=== PATIENT | male | born 1990 | race Caucasian/White ===

== ENCOUNTER 2024-01-27 08:27 | Emergency (ER) | payer SELFPAY ==
[2024-01-27 08:35] VITALS: BP 124/76
[2024-01-27] MEDS: NSS 1000 IV (08:57)
--- NOTE | 2024-01-27 09:02 | ED.GENMED ---
History of Present Illness
General
Chief Complaint: Alcohol Problem
Time Seen by Provider: 01/27/24 08:39
Travel History
Have you had any contact with someone who has COVID-19?: No
Do you have any symptoms of coronavirus? Fever > 100 degrees, chills, cough, shortness of breath, sore throat, loss of taste or smell, muscle aches, or headache?: No
History of Present Illness
History of Present Illness:
33-year-old male with past medical history of anxiety, bipolar disorder/depression and substance abuse presenting the emergency department for evaluation after family brought him to the ER due to suspected intoxication. Patient was found by police
around 8 AM on somebody's lawn and patient refused emergency department evaluation. Upon getting home family brought him to the ER to be further evaluated. Family is concerned about the patient as they note he started a new job on second shift a
few weeks ago and apparently on Sunday evening may have taken up to 10 doses of Neurontin but patient was unable to confirm this. Patient gets methadone regularly at [facility] as part of his opiate addiction treatment. Remaining history was
difficult to obtain secondary to patient's current mental status.
Past History
Past History
ED Past Medical History: Psychiatric (Anxiety bipolar depression) and Other (on Methadone)
ED Past Surgical History: None
Patient has exhibited threatening behavior?: No
PSI?: No
Social History
Tobacco: Non-smoker
Alcohol: Binge drinker
Drug: Former user
Personal: Single
Living: with family
Employment: Employed
Review of Systems
Review of Systems
All Other Systems: ROS reviewed and negative except as documented in HPI and ROS
Phy Exam
Physical Exam
Physical Exam:
GENERAL: Sleepy but arousable to voice, in no apparent distress
Head: Normocephalic atraumatic
EYE: conjunctiva clear
NECK: Supple,
ENT: o/p clr, mmm.
CARDIAC: Regular rate and rhythm
LUNGS: Clear breath sounds bilaterally, no acute respiratory distress, no wheezes/rales/rhonchi
Abdomen: Soft, nontender, nondistended
NEUROLOGICAL: Sleepy but will answer some yes and no questions
SKIN: Warm and dry, skin intact.
MUSCULOSKELETAL: well perfused.
PSYCH: Normal and appropriate interaction.
Scores
Heart Failure Risk
Heart Failure Risk Score: Not Applicable
Heart Score for Chest Pain Patients
STEMI patient?: Not applicable
Withdrawal Assessment of Alcohol
Withdrawal Assessment Completed?: Not applicable
Course
Orders/Labs/Results
Orders:
Orders
01/27/24 08:47
Bedside Glucose- Treatment ONCE
0.9% Sodium Chloride 1000 ml [Nss] 1,000 ml IV BOLUS
01/27/24 08:48
Electrocardiogram (*1) Stat
Reason for Study: Other
Other Reason for Exam: overdose
EKG- Treatment ONCE
01/27/24 08:49
Ofloxacin [Ocuflox] See Dose Instructions OPHTH STAT STA
01/27/24 09:02
Acetaminophen Urgent
Alcohol Urgent
Complete Blood Count/With Diff Urgent
Comprehensive Metabolic Panel Urgent
[place] Urgent
PTT Urgent
Prothrombin Time Urgent
Salicylate Urgent
01/27/24 10:13
Fentanyl, Urine Urgent
Urinalysis Reflex To Culture Urgent
Date Specimen was Collected: 01/27/24
Time Specimen was Collected: 10:09
Urine Drug Abuse Screen Urgent
Date Specimen was Collected: 01/27/24
Time Specimen was Collected: 10:09
Abnormal Lab Results
01/27/24 01/27/24 01/27/24
09:02 09:21 10:13
RBC 4.24 L 10^6/uL
(4.70-6.10)
Hct 36.4 L %
(39.0-52.0)
MCH 31.1 H pg
(27.0-31.0)
Absolute Lymphs (auto) 0.8 L 10^3/uL
(1.2-3.4)
Neutrophils % 78.4 H %
(42.2-75.2)
Lymphocytes % 16.9 L %
(20.5-51.1)
Glucose 123 H mg/dl
(70-99)
Salicylates < 1.0 L mg/dl
(2.0-20.0)
Urine Methadone Screen Positive H
(Negative)
Acetaminophen < 10 L ug/ml
(10-30)
POC Glucose 166 H mg/dl
(70-99)
01/27/24 09:02
01/27/24 09:02
Vital Signs
Initial and Last Documented VS:
Initial Vital Signs
Pulse Resp BP Pulse Ox
82 11 124/76 94
01/27/24 08:35 01/27/24 08:35 01/27/24 08:35 01/27/24 08:35
Last Documented Vital Signs
Pulse Resp BP Pulse Ox
93 16 112/75 96
01/27/24 12:30 01/27/24 12:30 01/27/24 10:00 01/27/24 12:30
MDM/Problems Addressed
Differential Diagnosis Includes:
Alcohol intoxication, substance abuse, question overdose
MDM/Problems Addressed:
33-year-old male presenting emergency department for evaluation of reported public intoxication. Family concerned for patient's wellbeing. There is question as to if patient may have attempted overdose with Neurontin. I do not see this is a
listed medication on patient's medication list however there is significant antipsychotic medications noted. Will check a lithium level. Toxicology workup initiated. Reassessment following
Chronic conditions affecting care: Psychiatric illness
Acute Exacerbation and/or Progression of Chronic Illness: Psychiatric illness
*Pulse Oximetry
Patient hypoxic: no
*Trial Examiner Interpretation
Rate: normal
Rhythm: sinus
*Critical Care Note
Total Time (30-74mins, 75-104mins- exclusive of procedures): Not Applicable
Data Reviewed
Review of Other/Old Records Reveals: Labs and Records
Source: patient, records and family
Comment
Comment:
Patient's cousin with whom he is very close with brought patient to the emergency department. She states that he has been sober from opiates for 3 years, alcohol for 3 months. She believes that he may have met somebody at his new place of
employment who may have provided him with pills (she believes possibly benzodiazepines). She notes that Sunday and Sunday he seemed to be acting a little bit funny and confused at times which is very atypical for him. She notes that he did
mention to her yesterday about taking the Neurontin tablet but notes that this is not a prescription that he has so was not sure as to where he may have obtained this. Patient has done drug/alcohol rehab in the past.
Patient Management
Escalation/DeEscalation of care consider admission/obs:
Patient continues to rest without any concerns. He is awake and talking. He states that he does admit to some benzodiazepine use over the last few weeks despite this showing up negative on his urine drug screen. Patient is amenable to [facility]
consultation but does not want to go to any inpatient facility. He denies any suicidal ideation or homicidal ideation.
Patient was provided with information for outpatient management from [facility] Stable for discharge home and aware of return precautions. Patient's cousin will be taking the patient home with her.
ED Attending Note
-
Portions of this chart may have been created with voice recognition software.� Occasional wrong word or��sound alike� substitutions may have occurred due to the inherent limitations of voice recognition software.
Discharge Plan
Departure
Patient Disposition: Home (Routine Discharge)
Date of Disposition: 01/27/24
Time of Disposition: 12:38
Patient with high blood pressure during this ER visit?: No
Discharge Problem:
Alcohol abuse, Substance abuse
Instructions: Alcohol Use Disorder (DC)
Prescriptions:
No Action
quetiapine [Seroquel] 25 mg Tablet
25 mg PO HS
Rx Instructions:
07/18/2023, patient takes this medication with one 200 mg Seroquel tablet HS for a total of 225 mg.
lamotrigine 150 mg Tablet
150 mg PO BID
acetaminophen [Tylenol] 325 mg Tablet
800 mg PO Q6H PRN (Reason: mild pain)
ibuprofen 800 mg Tablet
800 mg PO Q8H PRN (Reason: mild pain)
quetiapine [Seroquel] 200 mg Tablet
200 mg PO HS
Rx Instructions:
07/18/2023, patient takes this medication with one 25 mg Seroquel tablet HS for a total of 225 mg.
lithium carbonate 300 mg Tablet Extended Release
300 mg PO BID
trazodone 100 mg Tablet
100 mg PO HS
omeprazole magnesium [Prilosec OTC] 20 mg Tablet,Delayed Release (Dr/Ec)
40 mg PO DAILY
methadone 10 mg/mL Concentrate
190 mg PO DAILY
Rx Instructions:
07/18/2023, confirmed dosing with [facility] in [place]

Address: [address] [place] [address] [place] [address]
Referrals:
NONE,* [Family Provider] -
Interventions
Interventions:
*Risk Screen - Suicide Last Done: 01/27/24 08:35
*General Assessment Last Done: 01/27/24 08:35
*Neglect/Abuse Screening Last Done: 01/27/24 08:35
ED- Fall Risk Assessment Last Done: 01/27/24 09:15
*ED COVID-19 Vaccine History Last Done: 01/27/24 08:35
ED- Neurological Assessment Last Done: 01/27/24 09:15
ED-Psychological Assessment Last Done: 01/27/24 09:15
Discharge Date and Time
Print Language: INDONESIAN
[2024-01-27 09:14] VITALS: BMI 26.8
[2024-01-27 09:22] LABS: Glucose - Point of Care 166 mg/dl (70-99)
[2024-01-27 09:27] LABS: % Basophils 0.8 % (0-2); % Eosinophils 0.4 % (0-6); % Immature Granulocytes 0.4 % (0-0.5); % Lymphocytes 16.9 % (20.5-51.1); % Monocytes 3.1 % (1.7-9.3); % Neutrophils 78.4 % (42.2-75.2); Absolute Lymphocytes 0.8 10^3/uL (1.2-3.4); Absolute Monocytes 0.2 10^3/uL (0.1-0.6); Absolute Neutrophils 3.8 10^3/uL (1.4-6.5); Hematocrit 36.4 % (39.0-52.0); Hemoglobin 13.2 g/dL (13.0-18.0); Mean Corp Hgb Conc. 36.3 g/dL (33.0-37.0); Mean Corpuscular Hgb 31.1 pg (27.0-31.0); Mean Corpuscular Volume 85.8 fL (80.0-94.0); Mean Platelet Volume 10.2 fL (7.4-10.4); Nucleated Red Blood Cells % 0 % (-); Platelet Count 160 10^3/uL (130-400); Red Blood Cell Count 4.24 10^6/uL (4.70-6.10); Red Cell Dist. Width 12.5 % (11.5-14.5); White Blood Cell Count 4.8 10^3/uL (4.8-10.8)
[2024-01-27 09:30] LABS: ALT (SGPT) 17 U/L (0-50); AST (SGOT) 34 U/L (17-59); Acetaminophen < 10 ug/ml (10-30); Albumin 4.5 g/dl (3.5-5.0); Alcohol 205 mg/dl; Alkaline Phosphatase 73 U/L (38-126); Blood Urea Nitrogen 9 mg/dl (9-20); Carbon Dioxide 25 mmol/L (22-30); Chloride 106 mmol/L (98-107); Estimated Creatinine Clearance > 125 ml/min; Glucose 123 mg/dl (70-99); Lithium 0.7 mmol/L (0.6-1.2); Potassium 3.5 mmol/L (3.5-5.1); Salicylate < 1.0 mg/dl (2.0-20.0); Sodium 143 mmol/L (135-145); Total Bilirubin 0.3 mg/dl (0.2-1.3); Total Protein 7.2 g/dl (6.3-8.2); eGFR > 60.00
[2024-01-27 09:31] LABS: INR 1.09; PT 13.9 Sec (11.4-14.6)
[2024-01-27 09:32] LABS: APTT 25.2 Sec (23.4-35.0)
[2024-01-27 10:00] VITALS: BP 112/75
[2024-01-27 10:27] LABS: Urine Albumin Negative (Neg - Trace); Urine Bilirubin Negative (Negative); Urine Character Clear (Clear); Urine Color Yellow; Urine Glucose Negative (Negative); Urine Ketone Negative (Negative); Urine Leukocyte Negative (Negative); Urine Nitrite Negative (Negative); Urine Occult Blood Negative (Negative); Urine Urobilinogen Negative (Neg - 1+)
[2024-01-27 11:10] LABS: Amphetamines Negative (Negative); Barbiturates Negative (Negative); Benzodiazepines Negative (Negative); Buprenorphine Negative (Negative); Cocaine Negative (Negative); Marijuana Negative (Negative); Methadone Positive (Negative); Methamphetamines Negative (Negative); Opiates Negative (Negative); Phencyclidine Negative (Negative); Tricyclic Antidepressants Negative (Negative)
[2024-01-27 11:26] LABS: Fentanyl, Urine Negative (Negative)
== END 2024-01-27 13:00 | disposition home or self-care (01) ==
LOC: EMR 08:27
PROVIDERS: Physician Assistant Medical; EMERGENCY PHYSICIAN Emergency Medicine
DX: F10.10 Alcohol abuse, uncomplicated (principal); F19.10 Other psychoactive substance abuse, uncomplicated; F41.9 Anxiety disorder, unspecified; F31.9 Bipolar disorder, unspecified
CPT/HCPCS: 99284; 96360; 80053; 80143; 80178; 80179; 80306; 80307; 81003; 82077; 82962; 85025; 85610; 85730; 93005

== ENCOUNTER 2024-11-01 14:56 | Emergency (ER) | payer SELFPAY ==
[2024-11-01] VITALS (7 sets, daily range): BP systolic 98–158; BP diastolic 63–101
--- NOTE | 2024-11-01 15:19 | ED.GENMED ---
History of Present Illness
General
Chief Complaint: Crisis Evaluation
Source: patient
Exam Limitations: none
Time Seen by Provider: 11/01/24 15:13
History of Present Illness
History of Present Illness:
See MDM
Past History
Past History
ED Past Medical History: Psychiatric (Anxiety bipolar depression) and Other (on Methadone)
ED Past Surgical History: None
Patient has exhibited threatening behavior?: No
PSI?: No
Social History
Tobacco: Smoker
Alcohol: Binge drinker
Drug: Former user
Personal: Single
Living: with family
Employment: Employed
Phy Exam
Physical Exam
Physical Exam:
See MDM
Course
Orders/Labs/Results
Orders:
Orders
11/01/24 Dinner
Regular
At Your Request: Non-Participating
Does patient need a safe tray?: Yes
11/01/24 15:18
1:1 Observation - Suicide/ Violent Behavior As Directed
Haloperidol Lactate [Haldol] 5 mg IM NOW STA
Lorazepam [Ativan] 2 mg .ROUTE .STK-MED ONE
Lorazepam [Ativan] 2 mg IM NOW STA
Restraints - Violent As Directed
Restraint Type-: Locked-4 point/4 rails
Apply From (date): 11/01/24
Apply from (time): 15:18
Remove (date): 11/01/24
Remove (time): 19:18
11/01/24 15:19
Haloperidol Lactate [Haldol] 5 mg .ROUTE .STK-MED ONE
11/01/24 15:22
Crisis Consult Urgent
Reason for Consult: Suicidal
11/01/24 15:50
Complete Blood Count/With Diff Urgent
Fentanyl, Urine Urgent
Urine Drug Abuse Screen Urgent
Date Specimen was Collected: 11/01/24
Time Specimen was Collected: 15:29
11/01/24 15:51
Alcohol Urgent
Comprehensive Metabolic Panel Urgent
11/01/24 21:30
Lorazepam [Ativan] 1 mg PO NOW STA
11/01/24 21:46
Methadone [Dolophine] 30 mg PO NOW STA
Abnormal Lab Results
11/01/24 11/01/24
15:50 15:51
WBC 3.8 L 10^3/uL
(4.8-10.8)
RBC 4.61 L 10^6/uL
(4.70-6.10)
MCH 31.7 H pg
(27.0-31.0)
Potassium 3.2 L mmol/L
(3.5-5.1)
Chloride 108 H mmol/L
(98-107)
BUN 5 L mg/dl
(9-20)
Glucose 109 H mg/dl
(70-99)
Urine Methadone Screen Positive H
(Negative)
Ur Tricyclics Screen Positive H
(Negative)
U Marijuana (THC) Screen Positive H
(Negative)
11/01/24 15:50
11/01/24 15:51
Vital Signs
Initial and Last Documented VS:
Initial Vital Signs
Temp Pulse Resp BP Pulse Ox
98 F 91 16 158/101 95
11/01/24 15:03 11/01/24 15:03 11/01/24 15:03 11/01/24 15:03 11/01/24 15:03
Last Documented Vital Signs
Temp Pulse Resp BP Pulse Ox
98 F 94 20 108/77 97
11/01/24 15:03 11/01/24 21:37 11/01/24 21:37 11/01/24 21:37 11/01/24 21:37
MDM/Problems Addressed
Differential Diagnosis Includes:
HPI and MDM Narrative:
34-year-old male presenting for evaluation of alcohol abuse and suicidal thoughts. Patient states he was dropped off by his cousin. Patient is belligerent and admits to drinking alcohol today. Throughout our discussion, patient becoming extremely
agitated and irritable. He states he started drinking alcohol again 1 month ago. Prior to that, he was 8 months sober. Patient is intermittently tearful and states he has thoughts of killing himself. Patient states he has a plan to jump in front
of a large truck on the highway. During one of his agitated states, patient threw his arms up in the air and started yelling. This exposed a plastic bottle of vodka in his pants. I explained to the patient that we have to compensate the alcohol.
Patient shut the door and tried to chug the vodka bottle. Fortunately, crisis was able to remove the bottle immediately. Patient now becoming even more agitated and verbally threatening myself, nursing staff and security. Patient becoming
combative. For the safety of staff and for the patient himself, patient placed in 4 point restraints and given IM Haldol and Ativan.
Physical exam
General: Belligerent, appears intoxicated. Physically aggressive gestures
HEENT: protecting airway
Neck: supple
CV: No evidence of cyanosis
Resp: No accessory muscle use
Abd: Non-distended
Extremities: No deformities
Neuro: alert
Psych: Agitated
Skin: Intact
Problems Addressed including Acute and Chronic Conditions affecting care:
1. Suicidal thoughts
Acuity: acute
Prognosis: unstable
Details: Potentially in the setting of alcohol abuse. Will have crisis evaluate. Due to his threatening behavior, patient requiring restraints
2. Alcohol use disorder
Acuity: acute
Prognosis: unstable
Details: Will obtain alcohol level and continue to reassess for withdrawal symptoms
3. [ ]
Acuity: acute
Prognosis: stable
Details:
4. [ ]
Acuity: acute
Prognosis: stable
Details:
5. [ ]
Acuity:
Prognosis:
Details:
Updates
Crisis is working on bed search. He was denying to [facility] funding due to his substance abuse history. [facility] will evaluate for placement based on alcohol abuse. Patient is requesting his methadone dose of 58 mg. I am unable to confirm this dose
based on the time of day. Pharmacy suggesting giving a lower dose and they will be able to verify it in the morning. Will give 30 mg methadone to avoid significant opiate withdrawal
Differential Diagnosis (but not limited to): Alcohol abuse disorder, depression, suicidal ideations
Testing considered: Folate and thiamine testing
Drug therapy (if applicable): OTC meds, please see d/c instruction regarding Rx drugs
Amount and/or Complexity of Data Reviewed
Clinical info obtained from: Patient
External data reviewed: N/A
Labs I independently reviewed (but not limited to): UDS
Radiology: N/A
Pulse Ox: not hypoxic
EKG independently reviewed: N/A
Tray Room Worker: N/A
Critical Care: N/A
Risk of Complication:
Social Determinants of health: Good social support
Discussed with other providers: Crisis
Escalation of Care includes Admit/Obs: After being observed in the Emergency Department, pt stable for discharge.
Occasional wrong word or 'sound a like' substitutions may have occurred due to the inherent limitations of voice recognition software. Read the chart carefully and recognize, using context, where substitutions have occurred.
*Critical Care Note
Total Time (30-74mins, 75-104mins- exclusive of procedures): Not Applicable
ED Attending Note
-
Portions of this chart may have been created with voice recognition software.� Occasional wrong word or��sound alike� substitutions may have occurred due to the inherent limitations of voice recognition software.
Discharge Plan
Departure
Patient Disposition: Other
Date of Disposition: 11/01/24
Time of Disposition: 21:49
Discharge Problem:
Alcohol use disorder, Depression
Prescriptions:
No Action
quetiapine [Seroquel] 25 mg Tablet
25 mg PO HS
Rx Instructions:
07/18/2023, patient takes this medication with one 200 mg Seroquel tablet HS for a total of 225 mg.
lamotrigine 150 mg Tablet
150 mg PO BID
acetaminophen [Tylenol] 325 mg Tablet
800 mg PO Q6H PRN (Reason: mild pain)
ibuprofen 800 mg Tablet
800 mg PO Q8H PRN (Reason: mild pain)
quetiapine [Seroquel] 200 mg Tablet
200 mg PO HS
Rx Instructions:
07/18/2023, patient takes this medication with one 25 mg Seroquel tablet HS for a total of 225 mg.
lithium carbonate 300 mg Tablet Extended Release
300 mg PO BID
trazodone 100 mg Tablet
100 mg PO HS
omeprazole magnesium [Prilosec OTC] 20 mg Tablet,Delayed Release (Dr/Ec)
40 mg PO DAILY
methadone 10 mg/mL Concentrate
190 mg PO DAILY
Rx Instructions:
07/18/2023, confirmed dosing with [facility] in [place]

Address: [address] [place] [address] [place] [address]
Referrals:
UNKNOWN - PT DOES,NOT KNOW [Family Provider] -
Interventions
Interventions:
*Risk Screen - Suicide Last Done: 11/01/24 15:01
*General Assessment Last Done: 11/01/24 15:20
*Neglect/Abuse Screening Last Done: 11/01/24 15:05
*ED COVID-19 Vaccine History Last Done: 11/01/24 15:20
ED-Psychological Assessment Last Done: 11/01/24 15:35
Discharge Date and Time
Print Language: CZECH
--- NOTE | 2024-11-01 15:20 | EDRN ---
While ER DR FERNANDEZ was talking with this pt, the pt is heard screaming at the doctor, screaming profanities at the ER DR FERNANDEZ, then the pulled had a bottle of alcohol that he started drinking from. ER independent contractor attempted to take the bottle
of alcohol away and the pt lunged at ER senior security engineer and tried to forcefully take the bottle of alcohol back from the senior security engineer. additional ER security guards and ER staff were called for assistance.
[2024-11-01] MEDS: ATIVAN 2 MG IM (15:25)
[2024-11-01] MEDS: HALDOL 5 MG IM (15:25)
--- NOTE | 2024-11-01 15:40 | EDRN ---
due to this pt taking off all his clothing, slamming urine cup on table, breaking urine cup, spilling urine all over table and floor, and continuing to scream and verbally threaten ER STAFF.... per ER DR FERNANDEZ verbal order, the pt was placed in
hard locked 4 point restraints at this time
--- NOTE | 2024-11-01 15:50 | EDRN ---
this PUBLICIST obtained ordered bloodwork via straight stick at this time. the pt tolerated this procedure well. 1:1 observation is maintained by [facility] technician
[2024-11-01 15:58] LABS: % Eosinophils 2.9 % (0-6); % Immature Granulocytes 0.5 % (0-0.5); % Lymphocytes 44.1 % (20.5-51.1); % Monocytes 7.6 % (1.7-9.3); % Neutrophils 43.9 % (42.2-75.2); Absolute Eosinophils 0.1 10^3/uL (0-0.7); Absolute Lymphocytes 1.7 10^3/uL (1.2-3.4); Absolute Monocytes 0.3 10^3/uL (0.1-0.6); Absolute Neutrophils 1.7 10^3/uL (1.4-6.5); Hematocrit 41.4 % (39.0-52.0); Hemoglobin 14.6 g/dL (13.0-18.0); Mean Corp Hgb Conc. 35.3 g/dL (33.0-37.0); Mean Corpuscular Hgb 31.7 pg (27.0-31.0); Mean Corpuscular Volume 89.8 fL (80.0-94.0); Mean Platelet Volume 9.6 fL (7.4-10.4); Nucleated Red Blood Cells % 0 % (-); Platelet Count 158 10^3/uL (130-400); Red Blood Cell Count 4.61 10^6/uL (4.70-6.10); Red Cell Dist. Width 13.8 % (11.5-14.5); White Blood Cell Count 3.8 10^3/uL (4.8-10.8)
[2024-11-01 16:10] LABS: Amphetamines Negative (Negative); Barbiturates Negative (Negative); Benzodiazepines Negative (Negative); Buprenorphine Negative (Negative); Cocaine Negative (Negative); Methadone Positive (Negative); Methamphetamines Negative (Negative)
[2024-11-01 16:11] LABS: Marijuana Positive (Negative); Opiates Negative (Negative); Phencyclidine Negative (Negative); Tricyclic Antidepressants Positive (Negative)
[2024-11-01 16:13] LABS: ALT (SGPT) 13 U/L (0-50); AST (SGOT) 31 U/L (17-59); Albumin 4.4 g/dl (3.5-5.0); Alkaline Phosphatase 99 U/L (38-126); Blood Urea Nitrogen 5 mg/dl (9-20); Calcium 8.6 mg/dl (8.4-10.2); Carbon Dioxide 25 mmol/L (22-30); Chloride 108 mmol/L (98-107); Glucose 109 mg/dl (70-99); Potassium 3.2 mmol/L (3.5-5.1); Sodium 145 mmol/L (135-145); Total Bilirubin 0.4 mg/dl (0.2-1.3); Total Protein 7.3 g/dl (6.3-8.2); eGFR > 60.00
[2024-11-01 16:20] LABS: Alcohol 334 mg/dl
[2024-11-01 16:25] LABS: Fentanyl, Urine Negative (Negative)
--- NOTE | 2024-11-01 18:08 | EDRN ---
the pt is resting comfortably in bed. Per ER Dr Sarabia verbal order, this HORSEBACK RIDING INSTRUCTOR REMOVED the hard locked restraint on this pts left ankle at this time due to the pt being calm and cooperative with staff. 1:1 observation is maintained by [facility] glass technician
--- NOTE | 2024-11-01 18:29 | EDRN ---
the pt is resting comfortably in bed. Per ER Dr Sarabia verbal order, this SILVERING APPLICATOR REMOVED the hard locked restraint on this pts right wrist at this time due to the pt being calm and cooperative with staff. the pt still has his left wrist and right
ankle hard locked restrain is still in place at this time. this SILVERING APPLICATOR will continue to monitor this pt. 1:1 observation is maintained by [facility] technician.
--- NOTE | 2024-11-01 19:00 | EDRN ---
the pt remains cooperative and calm with ER staff. the pt is currently resting quietly in bed. 1:1 observation is maintained by payroll and benefits manager. Per ER Dr Sarabia verbal order, all restraints were REMOVED form this pt at this time. the pt was given
laurent-viktor soda to drink per the pts verbal request.
[2024-11-01] MEDS: ATIVAN 1 MG PO (21:40)
[2024-11-01] MEDS: DOLOPHINE 30 MG PO (22:08)
--- NOTE | 2024-11-01 23:00 | EDRN ---
Report received, patient is sleeping at this time, will continue to monitor
[2024-11-02 00:06] VITALS: BP 97/64
--- NOTE | 2024-11-02 01:00 | EDRN ---
Patient on the phone with a rehab center for assessment and trying to get placement.
[2024-11-02 04:42] VITALS: BP 125/89
[2024-11-02] MEDS: ATIVAN 2 MG PO ×3 (04:42→19:23)
--- NOTE | 2024-11-02 04:45 | EDRN ---
Patient reports starting to shake and feeling withdraw from alcohol, informed Dr. Duran who ordered Ativan, vital signs taken, and meds given.
--- NOTE | 2024-11-02 06:18 | EDRN ---
Spoke with crisis, patient was accepted at [facility], however they are waiting on funding and wont be able to find out until after 0800 and then will have to work on transport
[2024-11-02 09:02] VITALS: BP 134/88
[2024-11-02 11:24] VITALS: BP 139/88
[2024-11-02] MEDS: ATIVAN 1 MG PO ×2 (11:26→21:26)
--- NOTE | 2024-11-02 13:03 | ED.CRISIS ---
ED Crisis Note
ED Crisis Note
Subjective:
34-year-old male with history of polysubstance use presented to the ER yesterday intoxicated. He was having suicidal thoughts. Patient now sober denies being suicidal. He does feel he is withdrawing from both opioids and alcohol�he is tremulous,
having chills, sweats, nausea, headache, anxiety. He says his methadone dose is 58 mg.
Objective:
Patient is sitting in bed restless, mildly diaphoretic. He is mildly tachycardic. High normal blood pressure. Rest of vitals normal.
Assessment/Plan:
34-year-old male initially presented with suicidal thoughts while intoxicated. Now that he is sober he denied suicidality. He was released by crisis after their assessment but he was requesting placement in rehab. He was seen by PT cares and they
are able to placement rehab but unfortunately they cannot place him until tomorrow morning. He is willing to stay and in fact wishes to stay until he can be placed directly in rehab so that he does not relapse on alcohol use. He is having some
early signs of alcohol withdrawal but feels more strongly that he is withdrawing from opioids. He is on methadone he says 58 mg daily. He was given a lower dose yesterday because they were not able to confirm dose; again I cannot confirm this
dosing as his methadone clinic is closed on Sundays but we will give dose of 50 mg here as he is showing some signs of opiate withdrawal. Will give Ativan for mild alcohol withdrawal. Continue to monitor.
[2024-11-02] MEDS: DOLOPHINE 50 MG PO (13:11)
[2024-11-02 16:44] VITALS: BP 142/82
[2024-11-02 20:22] VITALS: BP 134/98
--- NOTE | 2024-11-02 21:41 | EDRN ---
Pt asking if accredited pharmacy technician can verify his med list at his main pharmacy in the morning. Pt goes to [facility] at [address] [facility] in [place].
[2024-11-03 08:18] VITALS: BP 121/79
[2024-11-03] MEDS: ATIVAN 2 MG PO (09:16)
[2024-11-03] MEDS: METHADONE 100 MG/10 ML 58 MG PO (09:56)
--- NOTE | 2024-11-03 10:41 | ED.CRISIS ---
Addendum entered and electronically signed by Ashutosh Resendiz DO 11/03/24 12:23:
The patient wants to go home at this time. [facility] will not take him today until 72 hours of not being suicidal. The patient denies suicidal (currently it has been 48 hours from time of initial indication that he was suicidal). The patient
also states that he never really was suicidal but thought he would say that he was suicidal because of his insurance and may help get him placed. He adamantly denies any suicidal thoughts or ideation at this time he has no plan for suicide. I
evaluated the patient at bedside and he is well-appearing at time of discharge. I spoke to DANILO several times.
Original Note:
ED Crisis Note
ED Crisis Note
Assessment/Plan:
I am told by DANILO that the dose of methadone that is confirmed to be 58 mg. I did order 58 mg of methadone today. Awaiting placement at [facility].
== END 2024-11-03 13:06 | disposition home or self-care (01) ==
LOC: EMR 14:56
PROVIDERS: EMERGENCY PHYSICIAN Student in an Organized Health Care Education/Training Program
DX: F10.939 Alcohol use, unspecified with withdrawal, unspecified (principal); Y90.8 Blood alcohol level of 240 mg/100 ml or more; F32.A Depression, unspecified; F11.90 Opioid use, unspecified, uncomplicated; F17.200 Nicotine dependence, unspecified, uncomplicated
CPT/HCPCS: 99284; 96372; 80053; 80306; 80307; 82077; 85025

== ENCOUNTER 2024-12-25 12:25 | Emergency (ER) | payer OTHER, SELFPAY ==
[2024-12-25 12:26] VITALS: BP 141/93
[2024-12-25] MEDS: KEFLEX 500 MG PO (12:49)
[2024-12-25] MEDS: ADACEL 0.5 ML IM (12:50)
--- NOTE | 2024-12-25 12:54 | ED.GENMED ---
History of Present Illness
General
Chief Complaint: Musculo-Skeletal Complaint
Source: patient
Time Seen by Provider: 12/25/24 12:35
History of Present Illness
History of Present Illness:
34-year-old male with psychiatric past medical history presents to the emergency department for evaluation after he partially amputated his left index finger using a log splitter about 10 minutes prior to arrival to the ER. Patient is right-hand
dominant, unknown last tetanus, no other injury sustained
Past History
Past History
ED Past Medical History: Psychiatric (Anxiety bipolar depression) and Other (on Methadone)
ED Past Surgical History: None
Patient has exhibited threatening behavior?: No
PSI?: No
Social History
Tobacco: Smoker
Alcohol: Binge drinker
Drug: Former user
Personal: Single
Living: with family
Employment: Employed
Review of Systems
Review of Systems
All Other Systems: ROS reviewed and negative except as documented in HPI and ROS
Phy Exam
Physical Exam
Physical Exam:
GENERAL: Alert , in no apparent distress
EYE: conjunctiva clear
Head: Normocephalic atraumatic
NECK: Supple,
ENT: mmm.
LUNGS: no acute respiratory distress
NEUROLOGICAL: Alert and oriented
SKIN: Warm and dry, distal half of the distal phalanx left index finger amputated, no active bleeding
MUSCULOSKELETAL: well perfused.
PSYCH: Normal and appropriate interaction.
Scores
Heart Failure Risk
Heart Failure Risk Score: Not Applicable
Heart Score for Chest Pain Patients
STEMI patient?: Not applicable
Withdrawal Assessment of Alcohol
Withdrawal Assessment Completed?: Not applicable
Course
Orders/Labs/Results
Orders:
Orders
12/25/24 12:38
Cephalexin Monohydrate [Keflex] 500 mg PO NOW STA
Oxycodone/Acetaminophen [Percocet 5/325] 1 tablet PO NOW STA
Tetanus/Diphth/Acelpertussis [Adacel] 0.5 ml IM .ONCE ONE
CR Hand - Left Min 3 Views Urgent
Comment:
Reason For Exam: left index finger tip amputation
12/25/24 12:54
Ibuprofen [Motrin] 800 mg PO NOW STA
Vital Signs
Initial and Last Documented VS:
Initial Vital Signs
Pulse Resp BP Pulse Ox
68 20 141/93 94
12/25/24 12:26 12/25/24 12:26 12/25/24 12:26 12/25/24 12:26
Last Documented Vital Signs
Pulse Resp BP Pulse Ox
68 20 141/93 94
12/25/24 12:26 12/25/24 12:26 12/25/24 12:26 12/25/24 12:26
MDM/Problems Addressed
Differential Diagnosis Includes:
Partial amputation of left index finger
MDM/Problems Addressed:
34-year-old male presenting to the ER for evaluation after he accidentally sustained a partial amputation of his left index finger about 10 minutes prior to arrival to the ER. Will control patient's pain with ibuprofen (initially ordered Percocet
however patient declined this), cover for infection with Keflex. X-ray ordered. Plan to notify orthopedics to help facilitate with follow-up.
*Radiology
Radiology exam reviewed: preliminary read by ED provider (partial amputation left index finger)
*Pulse Oximetry
Patient hypoxic: no
*Critical Care Note
Total Time (30-74mins, 75-104mins- exclusive of procedures): Not Applicable
Patient Management
Discussion with other providers: Specimen Preparation Assistant
Escalation/DeEscalation of care consider admission/obs:
Patient's x-ray shows partial amputation of the left second finger. Bleeding remains controlled with minimal pressure. I notified on-call orthopedist, Dr. Gil, but I would be providing patient with information for hand orthopedic follow-up.
Will initiate patient on Keflex. Continue NSAIDs/Tylenol [id number] for pain control. Patient aware of return precautions to the ER.
ED Attending Note
-
Portions of this chart may have been created with voice recognition software.� Occasional wrong word or��sound alike� substitutions may have occurred due to the inherent limitations of voice recognition software.
Discharge Plan
Departure
Patient Disposition: Home (Routine Discharge)
Date of Disposition: 12/25/24
Time of Disposition: 13:19
Patient with high blood pressure during this ER visit?: Yes
Discharge Problem:
Partial traumatic amputation of left index finger through phalanx
Prescriptions:
New
cephalexin 500 mg tablet
500 mg PO BID 7 Days Qty: 14 0RF
No Action
quetiapine [Seroquel] 25 mg Tablet
25 mg PO HS
Rx Instructions:
07/18/2023, patient takes this medication with one 200 mg Seroquel tablet HS for a total of 225 mg.
lamotrigine 150 mg Tablet
150 mg PO BID
acetaminophen [Tylenol] 325 mg Tablet
800 mg PO Q6H PRN (Reason: mild pain)
ibuprofen 800 mg Tablet
800 mg PO Q8H PRN (Reason: mild pain)
quetiapine [Seroquel] 200 mg Tablet
200 mg PO HS
Rx Instructions:
07/18/2023, patient takes this medication with one 25 mg Seroquel tablet HS for a total of 225 mg.
lithium carbonate 300 mg Tablet Extended Release
450 mg PO BID
trazodone 100 mg Tablet
100 mg PO HS
omeprazole magnesium [Prilosec OTC] 20 mg Tablet,Delayed Release (Dr/Ec)
40 mg PO DAILY
methadone 10 mg/mL Concentrate
58 mg PO DAILY
Rx Instructions:
07/18/2023, confirmed dosing with [facility] in [place]

Address: [address] [place] [address] [address] [place], [place] [id number]
gabapentin 300 mg Capsule
600 mg PO BID
Referrals:
David Marcano MD [Active] - (Ortho - Call for appointment LU[facility])
Interventions
Interventions:
*Risk Screen - Suicide Last Done: 12/25/24 12:28
*General Assessment Last Done: 12/25/24 12:28
*Neglect/Abuse Screening Last Done: 12/25/24 12:28
*ED- Fall Risk Assessment Last Done: 12/25/24 13:01
Discharge Date and Time
Print Language: CAPE VERDEAN
[2024-12-25] MEDS: MOTRIN 800 MG PO (12:56)
== END 2024-12-25 13:25 | disposition home or self-care (01) ==
LOC: EMR 12:25
PROVIDERS: EMERGENCY PHYSICIAN Emergency Medicine
DX: S68.121A Partial traumatic metacarpophalangeal amputation of left index finger, initial encounter (principal); W45.8XXA Other foreign body or object entering through skin, initial encounter; Z23 Encounter for immunization; F31.9 Bipolar disorder, unspecified; F41.9 Anxiety disorder, unspecified; F17.200 Nicotine dependence, unspecified, uncomplicated
CPT/HCPCS: 99283; 90471; 73130; 90715